=== PATIENT | male | born 1960 | race Caucasian/White ===

== ENCOUNTER 2021-01-12 09:22 | Emergency (ER) | payer OTHER ==
[~2021-01-12 09:22] MED LIST: AMLODIPINE BESY10 MG PO; ANTIVERT 25MG T25 MG PO; ASPIR 8181 MG PO; ATORVASTATIN CA20 MG PO; BENICAR20 MG PO; BENICAR40 MG PO; CALCIUM500 MG PO; COREG6.25 MG PO; DULOXETINE HCL30 MG PO; EUCERIN CREME57 GM TP; HYGROTON TAB 2525 MG PO; HYZAAR 100-251 EACH PO; LORTAB 5-325 M1 EACH PO; NEURONTIN 400400 MG PO; OMEPRAZOLE20 MG PO; PANTOPRAZOLE SO40 MG PO; PRAVACHOL40 MG PO; TASIGNA150 MG PO; TUMS ULTRA400 MG PO; VISTARIL 50 MG50 MG PO; VITAMIN D-40400 UNIT PO; VOLTAREN EC 7575 MG PO; XYLOCAINE 5% OI35 GM TOP; ZANTAC150 MG PO; ZYLOPRIM 300 M300 MG PO; ZYRTEC10 M3 PO
[2021-01-12] MEDS ORDERED: MYCOSTATIN100000 UTS PO (09:55)
[2021-01-12 10:07] LABS: HEMOGLOBIN 12.3 gm/dl (14.0-17.5); RED BLOOD COUNT 4.51 M/UL (4.20-5.50); WHITE BLOOD COUNT 5.1 K/UL (4.5-11.0)
[2021-01-12 10:26] LABS: BUN/CREATININE RATIO 12 (0-10)
== END 2021-01-12 11:55 | disposition home or self-care (01) ==
LOC: ER1 09:22
PROVIDERS: Emergency Medicine
DX: B37.0 Candidal stomatitis (principal); I10 Essential (primary) hypertension; R73.9 Hyperglycemia, unspecified; Z85.6 Personal history of leukemia
CPT/HCPCS: 80053; 82962; 85025; 99283; J7030

== ENCOUNTER 2021-02-23 15:46 | Emergency (ER) | payer OTHER ==
[~2021-02-23 15:46] MED LIST changes: +MYCOSTATIN100000 UTS PO
[2021-02-23 16:52] LABS: HEMOGLOBIN 13.6 gm/dl (14.0-17.5); RED BLOOD COUNT 5.02 M/UL (4.20-5.50); WHITE BLOOD COUNT 6.3 K/UL (4.5-11.0)
[2021-02-23] MEDS ORDERED: ZOFRAN ODT 4 MG4 MG PO (20:07)
[2021-02-23] MEDS ORDERED: OMNICEF 300 MG300 MG PO (20:10)
== END 2021-02-23 20:24 | disposition home or self-care (01) ==
LOC: ER1 15:46
PROVIDERS: Physician Assistant
DX: N39.0 Urinary tract infection, site not specified (principal); E11.9 Type 2 diabetes mellitus without complications; R53.83 Other fatigue; I10 Essential (primary) hypertension; E66.01 Morbid (severe) obesity due to excess calories; Z90.49 Acquired absence of other specified parts of digestive tract
CPT/HCPCS: 71045; 80053; 81001; 82550; 82553; 83690; 83874; 84484; 85025; 87086; 93005; 99284

== ENCOUNTER 2021-06-03 18:30 | Inpatient (IN) | payer OTHER ==
[~2021-06-03] VITALS: Ht 182.9 cm; Wt 132.9 kg
[~2021-06-03 18:30] MED LIST changes: +OMNICEF 300 MG300 MG PO; +ZOFRAN ODT 4 MG4 MG PO
[2021-06-03 19:00] LABS: HEMOGLOBIN 14.2 gm/dl (14.0-17.5); RED BLOOD COUNT 5.2 M/UL (4.20-5.50); WHITE BLOOD COUNT 5.7 K/UL (4.5-11.0)
[2021-06-03 19:29] LABS: BUN/CREATININE RATIO 14 (0-10)
[2021-06-03] MEDS ORDERED: HYZAAR 100-251 EACH PO (22:23)
[2021-06-03] MEDS ORDERED: TASIGNA150 MG PO (22:24)
[2021-06-03] MEDS ORDERED: BENTYL 10MG CAP10 MG PO (22:28)
[2021-06-03] MEDS ORDERED: GABAPENTIN400 MG PO (22:29)
[2021-06-03] MEDS ORDERED: HYDROCODON-ACE1 EAC2 PO (22:30)
[2021-06-04 10:55] LABS: HEMOGLOBIN 12.7 gm/dl (14.0-17.5); RED BLOOD COUNT 4.75 M/UL (4.20-5.50); WHITE BLOOD COUNT 3.5 K/UL (4.5-11.0)
[2021-06-04 11:15] LABS: BUN/CREATININE RATIO 26 (0-10)
[2021-06-05 03:32] LABS: HEMOGLOBIN 13.5 gm/dl (14.0-17.5); RED BLOOD COUNT 4.99 M/UL (4.20-5.50)
[2021-06-05 03:40] LABS: WHITE BLOOD COUNT 5.1 K/UL (4.5-11.0)
[2021-06-05 04:10] LABS: BUN/CREATININE RATIO 22 (0-10)
[2021-06-08 03:30] LABS: HEMOGLOBIN 12.5 gm/dl (14.0-17.5); RED BLOOD COUNT 4.71 M/UL (4.20-5.50); WHITE BLOOD COUNT 7.6 K/UL (4.5-11.0)
[2021-06-08 03:58] LABS: BUN/CREATININE RATIO 26 (0-10)
[2021-06-09] MEDS ORDERED: PROVENTIL HFA6.7 GM INH (11:16)
[2021-06-09] MEDS ORDERED: MEDROL4 MG PO (11:16)
== END 2021-06-09 15:13 | disposition home health service (06) | DRG 871 ==
LOC: ER1 18:30 → PROG CARE 20:26 → CDU 20:26 → PROG CARE 06-04 01:32
PROVIDERS: Emergency Medicine; Internal Medicine; Internal Medicine Pulmonary Disease; ADMIT Internal Medicine
PROC: 8E0ZXY6 Isolation (ICD-10-PCS; principal; 2021-06-03)
PROC: XW033E5 Introduction of Remdesivir Anti-infective into Peripheral Vein, Percutaneous Approach, New Technology Group 5 (ICD-10-PCS; 2021-06-03)
PROC: 3E0333Z Introduction of Anti-inflammatory into Peripheral Vein, Percutaneous Approach (ICD-10-PCS; 2021-06-03)
PROC: XW033H5 Introduction of Tocilizumab into Peripheral Vein, Percutaneous Approach, New Technology Group 5 (ICD-10-PCS; 2021-06-03)
PROC: 3E0 Administration, Physiological Systems and Anatomical Regions, Introduction (ICD-10-PCS; 2021-06-03)
PROC: 5A0955A Assistance with Respiratory Ventilation, Greater than 96 Consecutive Hours, High Flow/Velocity Cannula (ICD-10-PCS; 2021-06-03)
DX: A41.89 Other specified sepsis (principal); U07.1 COVID-19; J96.01 Acute respiratory failure with hypoxia; J12.82 Pneumonia due to coronavirus disease 2019; E66.2 Morbid (severe) obesity with alveolar hypoventilation; C92.10 Chronic myeloid leukemia, BCR/ABL-positive, not having achieved remission; N17.9 Acute kidney failure, unspecified; E87.2 Acidosis; E87.6 Hypokalemia; E86.0 Dehydration; G47.33 Obstructive sleep apnea (adult) (pediatric); I10 Essential (primary) hypertension; K59.00 Constipation, unspecified; K21.9 Gastro-esophageal reflux disease without esophagitis; M10.9 Gout, unspecified; Z79.01 Long term (current) use of anticoagulants; Z79.82 Long term (current) use of aspirin; Z68.39 Body mass index [BMI] 39.0-39.9, adult; Z23 Encounter for immunization; Z90.49 Acquired absence of other specified parts of digestive tract; Z98.890 Other specified postprocedural states
CPT/HCPCS: 36415; 36600; 71045; 71046; 80053; 82550; 82553; 82728; 82803; 82962; 83605; 83615; 83735; 83874; 83880; 84100; 84484; 85025; 85027; 85379; 85384; 85610; 85730; 86140; 87040; 87081; 93005; 94640; 94660; 94760; 96374; 99285; J0456; J0696; J1100; J1650; J3480; J7030; J7050; Q0249

== ENCOUNTER 2021-06-22 16:49 | Emergency (ER) | payer OTHER ==
[~2021-06-22 16:49] MED LIST changes: +BENTYL 10MG CAP10 MG PO; +GABAPENTIN400 MG PO; +HYDROCODON-ACE1 EAC2 PO; +MEDROL4 MG PO; +PROVENTIL HFA6.7 GM INH
[2021-06-22 17:24] LABS: HEMOGLOBIN 12.7 gm/dl (14.0-17.5); RED BLOOD COUNT 4.64 M/UL (4.20-5.50); WHITE BLOOD COUNT 3.6 K/UL (4.5-11.0)
[2021-06-22 18:00] LABS: BUN/CREATININE RATIO 10 (0-10)
== END 2021-06-22 20:39 | disposition home or self-care (01) ==
LOC: ER1 16:49
PROVIDERS: Preventive Medicine Occupational Medicine
DX: U07.1 COVID-19 (principal); E11.9 Type 2 diabetes mellitus without complications; I10 Essential (primary) hypertension; E78.5 Hyperlipidemia, unspecified
CPT/HCPCS: 36600; 71045; 80048; 82803; 85025; 85610; 85730; 86140; 93005; 99285; Q9967

== ENCOUNTER 2022-06-04 12:39 | Emergency (ER) | payer OTHER ==
[2022-06-04 13:22] LABS: HEMOGLOBIN 12.2 gm/dl (14.0-17.5); RED BLOOD COUNT 4.48 M/UL (4.20-5.50); WHITE BLOOD COUNT 5.6 K/UL (4.5-11.0)
[2022-06-04 13:50] LABS: BUN/CREATININE RATIO 12 (0-10)
[2022-06-04] MEDS ORDERED: PROVENTIL HFA6.7 GM INH (18:49)
== END 2022-06-04 19:05 | disposition home or self-care (01) ==
LOC: ER1 12:39
PROVIDERS: Physician Assistant Medical
DX: R60.0 Localized edema (principal); R06.02 Shortness of breath; E11.9 Type 2 diabetes mellitus without complications; E78.5 Hyperlipidemia, unspecified; I10 Essential (primary) hypertension; Z20.822 Contact with and (suspected) exposure to COVID-19
CPT/HCPCS: 71045; 80053; 82550; 82553; 83880; 84484; 85025; 93005; 93970; 99285; Q9967; U0002